=== PATIENT | male | born 1990 | race Caucasian/White ===

== ENCOUNTER 2022-08-03 18:07 | Emergency (ER) | payer BC ==
[2022-08-03] MEDS ORDERED: Lidocaine 1% PF 5 ML VIAL ONE (19:07)
[2022-08-03] MEDS ORDERED: Bacitracin 1 PK ONE (19:24)
== END 2022-08-03 19:21 | disposition home or self-care (01) ==
LOC: CSHERS 18:07
DX: S61.011A Laceration without foreign body of right thumb without damage to nail, initial encounter (principal); F17.210 Nicotine dependence, cigarettes, uncomplicated; W27.8XXA Contact with other nonpowered hand tool, initial encounter
CPT/HCPCS: 12001

== ENCOUNTER → 2022-08-14 | Emergency (ER) | payer BC, SELFPAY | LOC: CSHERS 19:41 | DX: Z53.21 Procedure and treatment not carried out due to patient leaving prior to being seen by health care provider (principal) ==